=== PATIENT | female | born 1990 | race Hispanic/Latino ===

== ENCOUNTER 2024-09-24 22:16 | Emergency (ER) | payer SELFPAY ==
[~2024-09-24] VITALS: Ht 154.9 cm; Wt 84.8 kg
--- NOTE | 2024-09-24 23:04 | ERN ---
ED Note History of Present Illness Stated Complaint: LEFT EARACHE Chief Complaint: Earache Time Seen by MD: 22:18 Time Seen by Midlevel: 22:30 Allergies: Coded Allergies: No Known Drug Allergies (Unverified Allergy, Unknown, 09/24/24) Home Meds Active Scripts Ibuprofen (Ibuprofen) 600 Mg Tablet, 600 MG PO Q6H PRN for PAIN, #15 TAB 0 Refills Prov:DYAN NORIEGA NP 09/24/24 Tramadol HCl/Acetaminophen (Tramadol-Acetaminophn 37.5-325) 37.5 Mg-325 Mg Tabl et, 1 TAB PO Q4HPRN PRN for pain for 2 Days, #12 TAB 0 Refills Prov:DYAN NORIEGA NP 09/24/24 Neomy Sulf/Polymyx B Sulf/Hc (Cortisporin Otic Soln) 3.5 Mg/Ml-10,000 Unit/Ml-1 % Otsol, 4 DROP TID for 7 Days, #10 ML 0 Refills Prov:DYAN NORIEGA NP 09/24/24 Past Medical History Past Medical History: No Pertinent History Surgical History: None LMP: August 16, 2024 RN Note Reviewed/Agreed w/PFSH: Yes Review of System Dictation REVIEW OF SYSTEMS: CONSTITUTIONAL: Patient denies fevers, chills, sweats and weight changes. EYES: Patient denies any visual symptoms. EARS, NOSE, AND THROAT: No difficulties with hearing. No symptoms of rhinitis or sore throat. Denies drainage from ears. Reports pain, swelling, and redness to the left ear. CARDIOVASCULAR: Patient denies chest pains, palpitations, orthopnea and paroxysmal nocturnal dyspnea. RESPIRATORY: No dyspnea on exertion, no wheezing or cough. GI: No nausea, vomiting, diarrhea, constipation, abdominal pain, hematochezia or melena. : No urinary hesitancy or dribbling. No nocturia or urinary frequency. No abnormal urethral discharge. MUSCULOSKELETAL: No myalgias or arthralgias. NEUROLOGIC: No chronic headaches, no seizures. Patient denies numbness, tingling or weakness. PSYCHIATRIC: Patient denies problems with mood disturbance. No problems with anxiety. ENDOCRINE: No excessive urination or excessive thirst. DERMATOLOGIC: Patient denies any rashes or skin changes. Initial Vital Sign VS Vital Signs Date Time Temp Pulse Resp B/P (MAP) Pulse Ox O2 Delivery O2 Flow Rate FiO2 09/24/24 22:17 98.4 92 18 118/83 99 Room Air 0 09/24/24 23:51 21 Physical Exam Dictation Vital signs: Reviewed. Afebrile Constitutional: Tearful/uncomfortable. Head/Face: Normocephalic, atraumatic. Eyes: Periorbital areas with no swelling, redness, or edema. Lids and lashes are normal. Conjunctival injection is absent. Sclera anicteric. Pupils equal, round, reactive to light. ENT: Pinnas intact and no signs of trauma or erythema. Pain with manipulation of the auricle and tragus of the left ear. There is erythema and edema of the external auditory canal. TM intact. Right ear is clear. Oropharynx with no exudate, redness, swelling, masses, exudates, or evidence of obstruction. Uvula midline. Mucous membranes moist. Neck: Trachea midline, no masses palpated, and no cervical lymphadenopathy. No swelling. Supple, full range of motion. Chest/Axilla: No tenderness, no crepitus, no paradoxical movement, no retractions. Cardiovascular: Regular rate, regular rhythm, no murmur, no gallops. Symmetric pulses. No peripheral edema. Respiratory: Respirations even and unlabored. Lung sounds clear; no wheezes, rales or rhonchi. Room air SpO2 99% Gastrointestinal: Inspection is normal. No distention is appreciated. Bowel sounds are normal. No mass or organomegaly . There is no tenderness. No rebound. No rigidity. No voluntary or involuntary guarding. No Yeh's sign. Neurological: Normal speech, gross motor function intact, gross sensory function intact. No focal weakness/Paresthesia. Musculoskeletal/Extremities: All extremities have full range of motion, no pain or tenderness on palpation. Symmetric pulses. Integumentary: Intact. Skin is normal color, warm and dry. Cap refill less than 2 seconds. Results (Laboratory/Radiology) Laboratory/Radiology Laboratory Tests Test 09/24/24 23:14 Urine HCG, Qualitative NEGATIVE (NEGATIVE) ED Course ED Course Orders Procedure Category Date Status Time Hydrocodone/Apap PHA 09/24/24 Complete 5/325 ([place] 5/325mg) 23:00 ,Urine Test LAB 09/24/24 Complete 23:00 Amox/Clav 875/125mg PHA 09/24/24 Complete Tab (Augmentin 875-1 23:30 Ketorolac PHA 09/24/24 Complete Tromethamine 30mg/Ml 23:30 Neomycin/Polymyx/Hc PHA 09/24/24 Complete Otic Susp (Cortispor 23:30 Current Medications Medications (Trade) Dose Ordered Sig/Gage Route PRN Reason Start Time Stop Time Status Last Admin Dose Admin Acetaminophen/ Hydrocodone Bitart (NORco 5/325MG) 1 tab ONCE ONCE PO 09/24/24 23:00 09/24/24 23:04 DC 09/24/24 23:17 Amoxicillin/ Clavulanate Potassium (Augmentin 875-125 Tablet) 1 each ONCE ONCE PO 09/24/24 23:30 09/24/24 23:06 DC Ketorolac Tromethamine (toRADol) 30 mg ONCE ONCE IM 09/24/24 23:30 09/24/24 23:31 DC 09/24/24 23:32 Neomycin/ Polymyxin/ Hydrocortisone (Cortisporin Otic) 4 drops ONCE ONCE 09/24/24 23:30 09/24/24 23:31 DC 09/24/24 23:32 Vital Signs Date Time Temp Pulse Resp B/P (MAP) Pulse Ox O2 Delivery O2 Flow Rate FiO2 09/24/24 23:51 98.1 81 16 128/74 99 Room Air* 0 21 09/24/24 22:17 98.4 92 18 118/83 99 Room Air 0 Uneventful ED course. Findings of right ear pain worsened by manipulation of the arm and tragus and bright erythema and edema of the external auditory canal consistent with otitis externa. Patient received doses Toradol and [place] x1 as well as Cortisporin otic drops. Findings were discussed with patient and all questions were answered. HCG negative. Medical Decision Making MDM MDM: Differential diagnosis: Otitis media, otitis externa, cellulitis Rationale: Tests considered and ordered secondary to shared decision making include: Examination, lab Previous outside records reviewed: Old ER visits. Risk of complication and/or morbidity or mortality of patient management: None Medications-Per medication reconciliation Need for hospitalization: Patient does not meet criteria for hospitalization. Need for emergency major/minor surgery: No There are no social concerns with this patient. Prescription drug management Cortisporin otic drops, tramadol, ibuprofen Prescriptions will include symptomatic care Patient's prior external medical records from other ER visits were reviewed by me as indicated. Prior testing and results from previous visits were reviewed. Prior tests were taken into account with medical decision making and resource utilization, independent historian/historians were used to obtain complete medical history. I independently interpreted the test that were performed, results were reviewed by me and considered findings on radiology if ordered. Medical management and examination interpretation discussions were had by me with other qualified healthcare professionals as indicated for the patient's care. DX & DISP Disposition: Discharge Departure Impression: Primary Impression: Otitis externa Condition: Stable Scripts Ibuprofen (Ibuprofen) 600 Mg Tablet 600 MG PO Q6H PRN for PAIN, #15 TAB 0 Refills Prov: DYAN NORIEGA NP 09/24/24 Tramadol HCl/Acetaminophen (Tramadol-Acetaminophn 37.5-325) 37.5 Mg-325 Mg Tablet 1 TAB PO Q4HPRN PRN for pain for 2 Days, #12 TAB 0 Refills Prov: DYAN NORIEGA NP 09/24/24 Neomy Sulf/Polymyx B Sulf/Hc (Cortisporin Otic Soln) 3.5 Mg/Ml-10,000 Unit/Ml-1 % Otsol 4 DROP TID for 7 Days, #10 ML 0 Refills Prov: DYAN NORIEGA NP 09/24/24 Additional Instructions: Given infection and inflammation of the outer ear canal commonly cause by dropped moisture, bacteria, or trauma. Use the prescribed ear drops, Cortisporin, four drops to the left ear 3 times daily for seven days. Apply on your left side with the affected ear up, place the drops in, and remained in that position for 3-5 minutes to help absorption. May take [id number] Tylenol or ibuprofen as needed for pain. For worse pain may take tramadol every 4 hours as needed. Do not use Q-tips or any objects in the ear. Keep the ear dry. Avoid swimming, bathing, or showering without an ear plug or cotton ball coated in petroleum jelly. Avoid inserting ear buds or hearing aids until the infection has fully resolved. Follow up with your PCP in 2-3 days for recheck. Return or seek medical attention if you experience: Worsening pain, redness, or swelling around the ear. Fever or chills. Drainage that increases or becomes foul-smelling. Hearing loss that worsens or new dizziness or facial weakness. Referrals: SELF,REFERRAL (PCP) Time of Disposition: 23:09 DYAN NORIEGA NP Sep 24, 2024 23:04 EMMA RUSHING DO Sep 25, 2024 00:05
[2024-09-24] MEDS ORDERED: CORTSOL AS (23:07)
[2024-09-24] MEDS ORDERED: TRAM-543 PO (23:07)
[2024-09-24] MEDS ORDERED: IBUP-2070 PO (23:07)
[2024-09-24] MEDS: HYDROcodone/APAP 5/325 1 TAB TABLET PO ONE (23:17)
[2024-09-24] MEDS ORDERED: AMOX/CLAV 875/125MG TAB PO ONE (23:30)
[2024-09-24] MEDS: ketOROlac 30MG VIAL (30MG/ML) IM ONE (23:32)
[2024-09-24] MEDS: NEOMYCIN/POLYMYXIN/HC OTIC SUSP 10ML BOTTLE AS ONE (23:32)
[2024-09-24 23:51] VITALS: BP 128/74; PULSE 81; RESP 16; TEMP 98; O2SAT 99
== END 2024-09-24 23:52 | disposition home or self-care (01) ==
LOC: EDH 22:16
DX: H60.92 Unspecified otitis externa, left ear (principal); Z79.899 Other long term (current) drug therapy
CPT/HCPCS: 99283; 81025; 96372; J1885